=== PATIENT | female | born 1960 | race American Indian/Alaskan Native ===

== ENCOUNTER 2018-07-12 14:32 | Emergency (ER) | payer OTHER ==
[~2018-07-12] VITALS: Ht 167.6 cm; Wt 95.2 kg
[~2018-07-12 14:32] MED LIST: METF500 PO; Omeprazole20 M1; Omeprazole20 M1 PO
[2018-07-12 14:59] LABS: BASOPHILS ABSOLUTE AUTO 0.04 K/mm3 (0.00-0.23); BASOPHILS PERCENT AUTO 0 % (0-2); EOSINOPHILS PERCENT AUTO 2 % (0-6); Hematocrit 42.5 % (33.0-51.0); Hemoglobin 13.4 g/dL (11.5-16.0); IMMATURE GRAN ABSOLUTE AUTO 0.03 K/mm3 (0.00-0.10); IMMATURE GRAN PERCENT AUTO 0 % (0-1); LYMPHOCYTES ABSOLUTE AUTO 3.71 K/mm3 (0.84-5.20); LYMPHOCYTES PERCENT AUTO 38 % (21-46); MONOCYTES PERCENT AUTO 9 % (4-13); Mean Corpuscular HGB 27.3 pg (26.0-34.0); Mean Corpuscular HGB Conc 31.5 g/dL (31.5-36.5); Mean Corpuscular Volume 87 fL (80-100); Mean Platelet Volume 9.5 fL (9.1-12.4); NEUTROPHILS ABSOLUTE AUTO 5.02 K/mm3 (1.96-9.15); NEUTROPHILS PERCENT AUTO 51 % (41-73); Platelet Count 282 K/mm3 (150-400); RDW Coefficient Variation 15.5 % (11.7-14.2); RDW Standard Deviation 49.4 fL (35.1-46.3)
[2018-07-12 15:29] LABS: Alanine Aminotransfer (ALT/SGP 41 U/L (12-78); Alk Phos 115 U/L (50-136); Anion Gap 11 mmol/L (6-16); Aspartate Aminotrans (AST/SGOT 25 U/L (12-37); Bilirubin, Total 0.4 mg/dL (0.1-1.0); Blood Urea Nitrogen 29 mg/dL (8-24); CO2, Blood 20 mmol/L (21-32); Chloride, Blood 106 mmol/L (98-108); Creatinine, Blood 0.88 mg/dL (0.40-1.00); Globulin, Blood 3.9 g/dL (2.2-4.0); Glomerular Filtration Rate >60 (60-); Glucose, Blood 93 mg/dL (70-99); Potassium, Blood 4.4 mmol/L (3.5-5.5); Sodium, Blood 137 mmol/L (136-145); Total Protein, Blood 7.9 g/dL (6.4-8.2)
[2018-07-12] MEDS ORDERED: Diclofenac Pota50 MG PO (16:05)
[2018-07-12 16:16] LABS: Source, Urine Clean Catch
[2018-07-12 16:35] LABS: Appearance, Urine Clear (Clear); Bilirubin, Urine Neg (Neg); Blood, Urine Neg (Neg); Color, Urine Yellow (P-Yellow); Glucose Qualitative, Urine Neg (Neg); Ketones, Urine 1+ (Neg); Leukocyte Esterase, Urine Neg (Neg); Nitrite, Urine Neg (Neg); Protein, Urine Neg (Neg); Specific Gravity, Urine 1.015 (1.003-1.022); Urobilinogen, Urine NORM (Normal)
[2018-07-12] MEDS ORDERED: Percocet 5-3251 EACH PO ×2 (17:44→17:45)
== END 2018-07-12 17:55 | disposition home or self-care (01) ==
LOC: ER 14:32
PROVIDERS: Physician Assistant
DX: R10.11 Right upper quadrant pain (principal); E11.9 Type 2 diabetes mellitus without complications; F17.210 Nicotine dependence, cigarettes, uncomplicated; Z79.899 Other long term (current) drug therapy; Z79.84 Long term (current) use of oral hypoglycemic drugs
CPT/HCPCS: 36415; 74176; 80053; 81003; 83690; 85025; 99284-25

== ENCOUNTER → 2019-03-17 | Outpatient (CLI) | payer OTHER ==
[~2019-03-17] MED LIST changes: +Diclofenac Pota50 MG PO; +Percocet 5-3251 EACH PO
[2019-03-23 15:06] LABS: COTININE None Detected (.); NICOTINE None Detected (.)
== END | disposition home or self-care (01) ==
LOC: OLS 13:17 → LAB SHORT 13:17
PROVIDERS: Radiology Diagnostic Radiology
DX: Z72.0 Tobacco use (principal)
CPT/HCPCS: G0480

== ENCOUNTER 2019-07-01 08:00 | Day surgery (SDC) | payer OTHER ==
[~2019-07-01] VITALS: Ht 167.6 cm; Wt 102.2 kg
[~2019-07-01 08:00] MED LIST changes: +ASPI81CH PO; +TRAM50 PO
[2019-07-01] MEDS ORDERED: HYDPAM50 PO (08:44)
--- NOTE | 2019-07-01 13:39 | NUR ---
1320 PATIENT SAT UP 30 DEGREES, GROIN SITE STABLE. LUNCH TRAY SET UP AND PATIENT FEEDING SELF.
--- NOTE | 2019-07-01 15:08 | NUR ---
2298 Patient up to the restroom with cane assistance. After voiding patient back to room and assisted with dressing. Awaiting daughter to arrive to review discharge instructions. Groin site CDI with tegaderm intact. all questions answered and discharge teaching done with daughter and patient.
--- NOTE | 2019-07-01 15:43 | NUR ---
1530 DAUGHTER ARRIVED. PIV DISCONTINUED AND PRESSURE DRESSING APPLIED. REVIEWED DISCHARGE INSTRUCTIONS WITH PATIENT AND DAUGHTER. BELONGINGS GATHERED AND PATIENT TO A WHEELCHAIR AND DISCHARGE HOME VIA PRIVATE VEHICLE.
== END 2019-07-01 15:30 | disposition home or self-care (01) ==
LOC: MHTC 08:00
DX: I70.213 Atherosclerosis of native arteries of extremities with intermittent claudication, bilateral legs (principal); E11.51 Type 2 diabetes mellitus with diabetic peripheral angiopathy without gangrene; E78.00 Pure hypercholesterolemia, unspecified; F17.210 Nicotine dependence, cigarettes, uncomplicated; I87.2 Venous insufficiency (chronic) (peripheral); Z88.6 Allergy status to analgesic agent; Z88.5 Allergy status to narcotic agent; Z79.84 Long term (current) use of oral hypoglycemic drugs; Z79.82 Long term (current) use of aspirin; Z79.899 Other long term (current) drug therapy
CPT/HCPCS: 37225; 37228; 75625; 75716; 75774; 82947; 99152; 99153; C1714; C1725; C1760; C1769; C1884; C1887; C1894; C2623; J1644; J2250; J3010; J7030; Q9967

== ENCOUNTER 2020-06-21 06:26 | Day surgery (SDC) | payer OTHER ==
[~2020-06-21] VITALS: Ht 165.1 cm; Wt 98.0 kg
[~2020-06-21 06:26] MED LIST changes: +CELECOXIB200 M1 PO; +HYDPAM50 PO; +KETO.5OPSO RIGHTEYE; +METF500C PO; +VITAMIN D310 MC4 PO
--- NOTE | 2020-06-21 07:12 | NUR ---
PT TO SDS VIA WC. Pre-Op teaching done. Pt verbalizes understanding. Patient confirms NPO status and agrees with scheduled surgery. Patient reports completing Chlorhexadine shower X2 prior to admission to hospital. DENTURES REMOVED AND PLACED IN BELONGINGS. CHEM BG 150.
--- NOTE | 2020-06-21 18:29 | NUR ---
SHIFT SUMMARY PT EATING AND DRINKING, VOIDING. PT HAD THERAPY TODAY AND IS UP TO CHAIR. FAMILY IN TO SEE PT THIS AFTERNOON/EVENING. PT REPORTED TAKING EXTENDED RELEASE METFORMIN, CLARIFIED WITH DR AND VERIFIED BY PHARMACY. PT REPORTS PAIN MUCH BETTER THIS EVENING THAT SHE HAS NO PAIN NOW. PT USING CALL LIGHT APPR. PT BEEN ASSISTED WITH ADL'S PRN. PT HAS POLAR PAC AND PAS IN PLACE.
[2020-06-22 04:18] LABS: BASOPHILS ABSOLUTE AUTO 0.01 K/mm3 (0.00-0.23); BASOPHILS PERCENT AUTO 0 % (0-2); EOSINOPHILS ABSOLUTE AUTO 0.01 K/mm3 (0.00-0.68); EOSINOPHILS PERCENT AUTO 0 % (0-6); Hematocrit 34.5 % (33.0-51.0); Hemoglobin 11.2 g/dL (11.5-16.0); IMMATURE GRAN ABSOLUTE AUTO 0.05 K/mm3 (0.00-0.10); IMMATURE GRAN PERCENT AUTO 0 % (0-1); LYMPHOCYTES PERCENT AUTO 14 % (21-46); MONOCYTES PERCENT AUTO 10 % (4-13); Mean Corpuscular HGB 30.2 pg (26.0-34.0); Mean Corpuscular HGB Conc 32.5 g/dL (31.5-36.5); Mean Corpuscular Volume 93 fL (80-100); Mean Platelet Volume 10.2 fL (9.1-12.4); NEUTROPHILS ABSOLUTE AUTO 10.73 K/mm3 (1.96-9.15); NEUTROPHILS PERCENT AUTO 76 % (41-73); Platelet Count 218 K/mm3 (150-400); RDW Coefficient Variation 13.3 % (11.7-14.2); RDW Standard Deviation 45.1 fL (35.1-46.3); Red Blood Cell Count 3.71 M/mm3 (3.80-5.20)
--- NOTE | 2020-06-22 04:25 | NUR ---
SHIFT SUMMARY PT IS A/O X4. SBA WITH FWW AND GAIT BELT TO AMBULATE. HAS BEEN UP TO BATHROOM MULT TIMES. AMBULATING WELL, TOLERATING PO INTAKE W/O NAUSEA, AND PAIN MANAGED WITH OCC VERO PER ORDERS. POLAR PACK IN PLACE OVERNIGHT TO R PAZ. LUCIA CDI. PT RESTING IN BED AT THIS TIME, CALL LIGHT IN REACH.
[2020-06-22 04:34] LABS: Anion Gap 8 mmol/L (6-16); Blood Urea Nitrogen 16 mg/dL (8-24); Bun/Creatinine Ratio 27.7 (12.0-20.0); CO2, Blood 25 mmol/L (21-32); Calcium, Blood 8.8 mg/dL (8.5-10.1); Chloride, Blood 109 mmol/L (98-108); Creatinine, Blood 0.58 mg/dL (0.40-1.00); Glomerular Filtration Rate >60 (60-); Glucose, Blood 136 mg/dL (70-99); Magnesium, Blood 1.6 mg/dL (1.6-2.4); Potassium, Blood 4.4 mmol/L (3.5-5.5); Sodium, Blood 142 mmol/L (136-145)
[2020-06-22] MEDS ORDERED: ASPI81CH PO (09:24)
[2020-06-22] MEDS ORDERED: OXYC5 PO (09:25)
--- NOTE | 2020-06-22 10:59 | NUR ---
DISCHARGE ESCORTED OUT VIA W/C. CLEARED THERAPY. EATING, DRINKING, VOIDING. PAIN WELL CONTROLLED. SCRIPTS, DRSGS, & POLAR PACK SENT.
== END 2020-06-22 10:30 | disposition home or self-care (01) ==
LOC: ORSCMMR 06:26 → ORD 07:30 → ORSCMMR 07:30 → SURS 10:45 → ORSCMMR 06-22 10:30
PROVIDERS: Orthopaedic Surgery
PROC: 0SR90JA Replacement of Right Hip Joint with Synthetic Substitute, Uncemented, Open Approach (ICD-10-PCS; principal; 2020-06-21 07:30)
DX: M16.11 Unilateral primary osteoarthritis, right hip (principal); E11.9 Type 2 diabetes mellitus without complications; K21.9 Gastro-esophageal reflux disease without esophagitis; K76.0 Fatty (change of) liver, not elsewhere classified; E66.01 Morbid (severe) obesity due to excess calories; Z68.36 Body mass index [BMI] 36.0-36.9, adult; Z87.891 Personal history of nicotine dependence; Z79.84 Long term (current) use of oral hypoglycemic drugs
CPT/HCPCS: 36415; 72170; 80048; 82947; 83735; 85025; 88300; 97110; 97116; 97162; 97530; A9270; C1776; J0171; J0690; J0735; J1100; J1170; J1885; J2250; J2405; J2704; J2795; J3010; J7120

== ENCOUNTER → 2021-10-25 | Outpatient (CLI) | payer OTHER ==
[~2021-10-25] MED LIST changes: +CHOLESTYRAMI239.4 G1 PO; +FERSU300 PO; +INSULANI SC; +OXYC5 PO; +[UNRECOGNIZED DRUG - CODE] PO
[2021-10-25 14:01] LABS: BASOPHILS ABSOLUTE AUTO 0.03 K/mm3 (0.00-0.23); BASOPHILS PERCENT AUTO 1 % (0-2); EOSINOPHILS PERCENT AUTO 3 % (0-6); Hemoglobin 13.1 g/dL (11.5-16.0); IMMATURE GRAN ABSOLUTE AUTO 0.03 K/mm3 (0.00-0.10); IMMATURE GRAN PERCENT AUTO 1 % (0-1); LYMPHOCYTES ABSOLUTE AUTO 2.22 K/mm3 (0.84-5.20); LYMPHOCYTES PERCENT AUTO 33 % (21-46); MONOCYTES ABSOLUTE AUTO 0.58 K/mm3 (0.16-1.47); MONOCYTES PERCENT AUTO 9 % (4-13); Mean Corpuscular HGB 27.6 pg (26.0-34.0); Mean Corpuscular Volume 87 fL (80-100); Mean Platelet Volume 10.5 fL (9.1-12.4); NEUTROPHILS ABSOLUTE AUTO 3.58 K/mm3 (1.96-9.15); NEUTROPHILS PERCENT AUTO 54 % (41-73); Platelet Count 217 K/mm3 (150-400); Red Blood Cell Count 4.74 M/mm3 (3.80-5.20); White Blood Cell Count 6.64 K/mm3 (4.00-11.30)
[2021-10-25 14:30] LABS: Bun/Creatinine Ratio 36.2 (12.0-20.0); Calcium, Blood 9.4 mg/dL (8.5-10.1); Creatinine, Blood 0.66 mg/dL (0.40-1.00); Potassium, Blood 4.2 mmol/L (3.5-5.5)
== END ==
LOC: LAB SHORT 12:07
PROVIDERS: Orthopaedic Surgery
DX: Z01.812 Encounter for preprocedural laboratory examination (principal); E11.9 Type 2 diabetes mellitus without complications; M16.12 Unilateral primary osteoarthritis, left hip
CPT/HCPCS: 36415; 80048; 83036; 85025

== ENCOUNTER 2021-11-07 06:08 | Day surgery (SDC) | payer OTHER ==
[~2021-11-07] VITALS: Ht 167.6 cm; Wt 90.1 kg
--- NOTE | 2021-11-07 07:09 | NUR ---
PT ADMITTED TO [facility]. AGREES WITH PLANNED SURGERY. LUNG SOUNDS CLEAR.
--- NOTE | 2021-11-07 14:18 | NUR ---
SPINAL/PAIN ONLY GROSS MOVEMENT TO BLE. DENIES PAIN. L HIP SITE w/ VERY SCANT DRNG.
--- NOTE | 2021-11-07 15:51 | NUR ---
ASSUMED CARE OF PT AT APROX 1500. AT THIS TIME PT HAS SENSATION TO BLE AND SOME MVMT LE. UNABLE TO LIFT LLE AT THIS TIME. DENIES PAIN OR ANY NEEDS.
--- NOTE | 2021-11-07 18:50 | NUR ---
SHIFT SUMMARY PT POD 0 L ALEC. DRESSING WITH SMALL AMT SS DRAINAGE. UNABLE TO WORK WITH THERAPY TODAY DUE TO SPINAL BLOCK. WAS ABLE TO AMBULATE TO BATHROOM AT APROX 1715 1 MOD ASSIST W/FWW AND GAIT BELT, UP TO CHAIR FOR DINNER. VOIDING W/O DIFFICULTY. TOLERATING PO WITH NO N/V.
[2021-11-08 05:13] LABS: BASOPHILS ABSOLUTE AUTO 0.02 K/mm3 (0.00-0.23); BASOPHILS PERCENT AUTO 0 % (0-2); EOSINOPHILS ABSOLUTE AUTO 0.02 K/mm3 (0.00-0.68); EOSINOPHILS PERCENT AUTO 0 % (0-6); Hematocrit 36.2 % (33.0-51.0); Hemoglobin 11.7 g/dL (11.5-16.0); IMMATURE GRAN ABSOLUTE AUTO 0.06 K/mm3 (0.00-0.10); IMMATURE GRAN PERCENT AUTO 1 % (0-1); LYMPHOCYTES ABSOLUTE AUTO 1.79 K/mm3 (0.84-5.20); LYMPHOCYTES PERCENT AUTO 14 % (21-46); MONOCYTES ABSOLUTE AUTO 1.26 K/mm3 (0.16-1.47); MONOCYTES PERCENT AUTO 10 % (4-13); Mean Corpuscular HGB 28.2 pg (26.0-34.0); Mean Corpuscular HGB Conc 32.3 g/dL (31.5-36.5); Mean Corpuscular Volume 87 fL (80-100); NEUTROPHILS ABSOLUTE AUTO 9.85 K/mm3 (1.96-9.15); NEUTROPHILS PERCENT AUTO 76 % (41-73); Platelet Count 219 K/mm3 (150-400); RDW Coefficient Variation 19.3 % (11.7-14.2); Red Blood Cell Count 4.15 M/mm3 (3.80-5.20)
--- NOTE | 2021-11-08 05:29 | NUR ---
SHIFT SUMMARY A/O X4. POD1 L TOTAL HIP, PREMIO DRESSING IN PLACE, C/D/I. AMBULATING TO THE BATHROOM W/ 1 ASSIST, FWW, AND GB. NO PAIN REPORTED THROUGHOUT SHIFT. TOLERATING PO INTAKE. VOIDING WELL. VITAL SIGNS STABLE. WILL CONTINUE TO MONITOR AND REPORT TO ONCOMING RN.
[2021-11-08 05:38] LABS: Bun/Creatinine Ratio 35.4 (12.0-20.0); Calcium, Blood 9.1 mg/dL (8.5-10.1); Creatinine, Blood 0.68 mg/dL (0.40-1.00); Potassium, Blood 4.1 mmol/L (3.5-5.5)
[2021-11-08] MEDS ORDERED: ACET500 PO (08:43)
[2021-11-08] MEDS ORDERED: OMEP20ER PO (08:43)
[2021-11-08] MEDS ORDERED: OXYC5 PO (08:44)
--- NOTE | 2021-11-08 13:06 | NUR ---
DISCHARGE SUMMARY PT POD #1 FOR L TOTAL HIP. DERMABOND DRESSING IN PLACE AND CDI. PT HAS NOT HAD ANY PAIN THIS SHIFT. WORKED WITH PHYSICAL THERAPY AND CLEARED TO GO HOME. PT DC'D HOME WITH DAUGHTER.
== END 2021-11-08 13:00 | disposition home or self-care (01) ==
LOC: ORSCMMR 06:08 → ORD 07:30 → ORSCMMR 07:30 → SURS 10:53 → ORSCMMR 11-08 13:00
PROVIDERS: Orthopaedic Surgery
PROC: 0SRB0JA Replacement of Left Hip Joint with Synthetic Substitute, Uncemented, Open Approach (ICD-10-PCS; principal; 2021-11-07 07:30)
DX: M16.12 Unilateral primary osteoarthritis, left hip (principal); Z96.641 Presence of right artificial hip joint; E11.9 Type 2 diabetes mellitus without complications; Z79.4 Long term (current) use of insulin; K21.9 Gastro-esophageal reflux disease without esophagitis; K76.0 Fatty (change of) liver, not elsewhere classified; Z79.899 Other long term (current) drug therapy; E66.9 Obesity, unspecified; Z68.32 Body mass index [BMI] 32.0-32.9, adult
CPT/HCPCS: 36415; 72170; 80048; 82947; 83735; 85025; 97110; 97116; 97162; A9270; C1776; J0171; J0690; J0735; J1100; J1815; J1885; J2250; J2370; J2405; J2704; J2795; J3010; J7120

== ENCOUNTER 2023-05-24 10:38 | Day surgery (SDC) | payer OTHER ==
[2023-05-24] VITALS (9 sets, daily range): BP systolic 92–161; BP diastolic 58–94
[~2023-05-24] VITALS: Ht 167.6 cm; Wt 93.0 kg
[~2023-05-24 10:38] MED LIST changes: +ACET500 PO; -CELECOXIB200 M1 PO; +CELECOXIB50 MG PO; +OMEP20ER PO
--- NOTE | 2023-05-24 16:00 | NUR ---
PT ARRIVES BACK TO RECOVERY ROOM. VSS. PT ALERT AND ORIENTED, REFRESHMENTS PROVIDED. PT LEFT GROIN SITE WNL, SOFT NO HEMATOMA. PT REMAINS IN SUPINE POSITION. VERBALIZED UNDERSTANDING TO REMAIN SUPINE WITH NO FLEXING OR LIFTING OF HEAD. WARM BLANKETS IN PLACE.
--- NOTE | 2023-05-24 18:03 | NUR ---
pt site remains unchanged. site soft, no hematoma. pt. vss. additional refreshments provided.
--- NOTE | 2023-05-24 18:09 | NUR ---
pt hob raised to 30 degrees, tolerated well. site remains unchanged. pt. asssited to dangle at bedside and stand. stable on feet at this time. site assessed after standing and remains unchanged. pt requesting to ambulate to bathroom. assisted to bathroom at this time.
--- NOTE | 2023-05-24 18:32 | NUR ---
PT UP AND AMBULATING W/O DIFFICULTY. PT VSS. SITE REMAINS UNCHANGED. IV REMOVED, CATHETER INTACT. PT. ABLE TO GET SELF DRESSED W/O DIFFICULTY. PT. DISCHARGE INSTRUCTIONS REVIEWED IN DETAIL, NO FURTHER QUESTIONS AT THIS TIME. PT. S/O CALLED FOR RIDE.
--- NOTE | 2023-05-24 18:58 | NUR ---
pt dressed and ready to be discharged, pt ride delayed.
== END 2023-05-24 19:20 | disposition home or self-care (01) ==
LOC: MHTC 10:38
DX: E11.51 Type 2 diabetes mellitus with diabetic peripheral angiopathy without gangrene (principal); I73.9 Peripheral vascular disease, unspecified; I83.813 Varicose veins of bilateral lower extremities with pain; Z87.891 Personal history of nicotine dependence
CPT/HCPCS: 76937; 85347; 99152; 99153; C1725; C1760; C1769; C1887; C1894; C2623; J1644; J2250; J3010; J7030; J7050; Q9967

== ENCOUNTER 2023-06-07 09:10 | Day surgery (SDC) | payer OTHER ==
[2023-06-07] VITALS (11 sets, daily range): BP systolic 94–155; BP diastolic 56–114
[~2023-06-07] VITALS: Ht 167.6 cm; Wt 93.0 kg
[~2023-06-07 09:10] MED LIST changes: +Aspir 8181 MG PO
[2023-06-07] MEDS ORDERED: CLOP75 PO (14:25)
--- NOTE | 2023-06-07 14:54 | NUR ---
PT AMBULATES TO RESTROOM AND BACK WITHOUT DIFF. DRESSES SELF WITHOUT ASSISTANCE. VSS. NADN. R FEMORAL SITE/ L PEDAL SITE REMAIN STABLE. NO BLEEDING OR HEMATOMA NOTED. PT VERBALIZES UNDERSTANDING WRITTEN AND VERBAL INSTRUCTIONS. PT IV DC'D. CATH INTACT. PRESSURE DSG APPLIED. NO BLEEDING NOTED. PT DC TO HOME VIA WC BY DAUGHTER.
== END 2023-06-07 14:55 | disposition home or self-care (01) ==
LOC: MHTC 09:10
DX: E11.51 Type 2 diabetes mellitus with diabetic peripheral angiopathy without gangrene (principal); I70.223 Atherosclerosis of native arteries of extremities with rest pain, bilateral legs; I87.313 Chronic venous hypertension (idiopathic) with ulcer of bilateral lower extremity; Z87.891 Personal history of nicotine dependence; Z88.5 Allergy status to narcotic agent; Z79.82 Long term (current) use of aspirin; Z79.4 Long term (current) use of insulin; Z79.899 Other long term (current) drug therapy
CPT/HCPCS: 37227; 37252; 75625; 75716; 75774; 76937; 85347; 99152; 99153; C1724; C1753; C1760; C1769; C1874; C1887; C1894; C2623; J1644; J2250; J3010; J7030; J7050; Q9967

== ENCOUNTER 2023-09-27 09:48 | Day surgery (SDC) | payer MEDICARE, OTHER ==
[2023-09-27] VITALS (13 sets, daily range): BP systolic 101–149; BP diastolic 63–85
[~2023-09-27] VITALS: Ht 167 cm; Wt 91.0 kg
[~2023-09-27 09:48] MED LIST changes: +CLOP75 PO; +EUTHYROX88 MCG PO; +Lactated Ringer's 1,000 ML IV SCH
--- NOTE | 2023-09-27 10:56 | NUR ---
History, Chart, Medications and Allergies reviewed before start of procedure. Patient up to Ambulate independently. Gait steady. Pre-Op teaching done. Pt verbalizes understanding. Patient confirms NPO status and agrees with scheduled surgery. Patient states colon prep results light yellow without sediment. Patient States Post-Procedure ride home has been arranged.
[2023-09-27] MEDS ORDERED: propofoL 40 ML IV ONE (11:17)
--- NOTE | 2023-09-27 11:28 | NUR ---
09/27/23 1128 Jeff Hernandez HISTORY, CHART, MEDICATIONS AND ALLERGIES REVIEWED BEFORE START OF PROCEDURE. PATIENT CONFIRMS NPO STATUS AND AGREES WITH SCHEDULED PROCEDURE. 3-LEAD EKG REVIEWED WITH PHYSICIAN PRIOR TO START OF PROCEDURE. MONITOR INTACT WITH CONTINUOUS PULSE OXIMETRY,CAPNOGRAPHY, 3-LEAD EKG, INTERMITTENT BP. SUPPLEMENTAL O2 TO BE TITRATED THROUGHOUT PROCEDURE TO MAINTAIN O2 SATURATION ABOVE 90%. PATIENT DETERMINED TO BE ASA APPROPRIATE FOR PROPOFOL SEDATION PRIOR TO START OF PROCEDURE BY DR. GONZALEZ.
--- NOTE | 2023-09-27 12:16 | NUR ---
Patient up to Ambulate independently. Gait steady. Discharge instructions reviewed with patient. Patient verbalizes understanding. Copy given to patient to take home. Patient States Post-Procedure ride home has been arranged. Discharged via wheelchair to private car for ride home. ALL BELONGINGS RETURNED TO PATIENT.
== END 2023-09-27 22:46 | disposition home or self-care (01) ==
LOC: ORSCMMR 09:48 → ORD 10:30 → ORSCMMR 10:30 → ORD 10-09 08:00
PROVIDERS: Internal Medicine Gastroenterology
PROC: 0DBK8ZX Excision of Ascending Colon, Via Natural or Artificial Opening Endoscopic, Diagnostic (ICD-10-PCS; principal; 2023-09-27 10:30)
PROC: 0DBN8ZX Excision of Sigmoid Colon, Via Natural or Artificial Opening Endoscopic, Diagnostic (ICD-10-PCS; principal; 2023-09-27 10:30)
DX: Z12.11 Encounter for screening for malignant neoplasm of colon (principal); Z86.010 Personal history of colon polyps; K63.5 Polyp of colon; E11.9 Type 2 diabetes mellitus without complications; K57.30 Diverticulosis of large intestine without perforation or abscess without bleeding; I73.9 Peripheral vascular disease, unspecified; E03.9 Hypothyroidism, unspecified; K21.9 Gastro-esophageal reflux disease without esophagitis; F17.210 Nicotine dependence, cigarettes, uncomplicated; Z68.33 Body mass index [BMI] 33.0-33.9, adult; Z79.02 Long term (current) use of antithrombotics/antiplatelets; Z79.899 Other long term (current) drug therapy
CPT/HCPCS: 82947; 88305; J2704; J7120

== ENCOUNTER → 2025-01-15 | Outpatient (CLI) | payer MEDICARE, OTHER ==
[~2025-01-15] MED LIST changes: +ATOR40TA PO; +Acetaminophen650 M1 PO; +BRILINTA90 M1 PO; +FURO20 PO; +LANTUS SOL100 UNIT/1 SC; +LOSA25 PO; -Lactated Ringer's 1,000 ML IV SCH; +METO25ER; +PANT20 PO; +POTA10T PO; +TERB250 PO
[2025-01-15 20:51] LABS: Creatinine, Urine Random 17.4 mg/dL (27.00-270.00); Microalb/Creat Ratio UR, Rand 50.632 mg/g (0.000-30.000); Microalbumin, Random Urine 8.81 mg/L (0.000-20.000)
== END ==
LOC: LAB SHORT 14:58 → LAB 14:58
PROVIDERS: Family Medicine
DX: E11.9 Type 2 diabetes mellitus without complications (principal); Z79.4 Long term (current) use of insulin
CPT/HCPCS: 82043; 82570

== ENCOUNTER 2025-05-19 15:43 | Inpatient (IN) | payer MEDICARE, OTHER ==
[~2025-05-19] VITALS: Ht 167.6 cm; Wt 89.2 kg
[2025-05-19] MEDS ORDERED: Ketorolac Tromethamine 15mg Vial IV ONE ×2 (17:05→19:25)
[2025-05-19 17:59] LABS: BASOPHILS ABSOLUTE AUTO 0.05 K/mm3 (0.00-0.23); BASOPHILS PERCENT AUTO 0 % (0-2); EOSINOPHILS ABSOLUTE AUTO 0.07 K/mm3 (0.00-0.68); EOSINOPHILS PERCENT AUTO 1 % (0-6); Hematocrit 43.1 % (33.0-51.0); Hemoglobin 14.4 g/dL (11.5-16.0); IMMATURE GRAN ABSOLUTE AUTO 0.08 K/mm3 (0.00-0.10); IMMATURE GRAN PERCENT AUTO 1 % (0-1); LYMPHOCYTES ABSOLUTE AUTO 1.65 K/mm3 (0.84-5.20); LYMPHOCYTES PERCENT AUTO 12 % (21-46); MONOCYTES ABSOLUTE AUTO 0.69 K/mm3 (0.16-1.47); MONOCYTES PERCENT AUTO 5 % (4-13); Mean Corpuscular HGB Conc 33.4 g/dL (31.5-36.5); Mean Corpuscular Volume 93 fL (80-100); NEUTROPHILS ABSOLUTE AUTO 11.28 K/mm3 (1.96-9.15); NEUTROPHILS PERCENT AUTO 82 % (41-73); NRBC ABSOLUTE 0.00 K/mm3 (0.00-0.02); NRBC Auto 0.0 /100 WBC (0.0-0.2); Platelet Count 235 K/mm3 (150-400); RDW Coefficient Variation 13.5 % (11.7-14.2); RDW Standard Deviation 46.0 fL (35.1-46.3)
[2025-05-19 18:12] LABS: Alanine Aminotransfer (ALT/SGP 27.0 U/L (12-78); Albumin, Blood 3.8 g/dL (3.4-5.0); Albumin/Globulin Ratio 1.0 (0.8-1.8); Anion Gap 8.0 mmol/L (3-11); Aspartate Aminotrans (AST/SGOT 19.0 U/L (12-37); Bilirubin, Total 0.4 mg/dL (0.1-1.0); Blood Urea Nitrogen 24.0 mg/dL (8-24); CO2, Blood 27.0 mmol/L (21-32); Calcium, Blood 9.5 mg/dL (8.5-10.1); Chloride, Blood 106.0 mmol/L (98-108); Creatinine, Blood 0.82 mg/dL (0.40-1.00); Globulin, Blood 3.9 g/dL (2.2-4.0); Glucose, Blood 181.0 mg/dL (70-99); Potassium, Blood 4.4 mmol/L (3.5-5.5); Sodium, Blood 137.0 mmol/L (136-145); Total Protein, Blood 7.7 g/dL (6.4-8.2)
[2025-05-19 20:54] LABS: Prothrombin Time Results 11.4 Sec (9.7-11.5)
[2025-05-19] MEDS ORDERED: Ondansetron HCl 2 MG / ML 2ML Vial IV PRN (21:25)
[2025-05-19] MEDS ORDERED: FLU VACC TS2025(65UP)/MF59C/PF 45 MCG/0.5 ML SYRINGE IM SCH (21:25)
[2025-05-19] MEDS ORDERED: NS 1,000 ML IV SCH (21:25)
[2025-05-19] MEDS ORDERED: OxyCODONE 5 mg/Acetamin 325 mg TABLET PO PRN (21:30)
[2025-05-19] MEDS ORDERED: FentaNYL Citrate 50 MCG/ML 2 ML Injection IV PRN (21:30)
[2025-05-19] MEDS ORDERED: Insulin Glargine-Yfgn 100 Unit/mL 3 ML SYR SC SCH (22:00)
[2025-05-20] VITALS (20 sets, daily range): BP systolic 107–164; BP diastolic 59–90
[2025-05-20] MEDS ORDERED: JARDIANCE10 MG PO (00:23)
[2025-05-20] MEDS ORDERED: CLOP75 PO (00:24)
[2025-05-20] MEDS ORDERED: LEVSOD25 PO (00:25)
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
[2025-05-20 06:35] LABS: Hematocrit 37.1 % (33.0-51.0); Hemoglobin 12.4 g/dL (11.5-16.0); Mean Corpuscular HGB Conc 33.4 g/dL (31.5-36.5); Mean Corpuscular Volume 92 fL (80-100); NRBC ABSOLUTE 0.00 K/mm3 (0.00-0.02); NRBC Auto 0.0 /100 WBC (0.0-0.2); Platelet Count 196 K/mm3 (150-400); RDW Coefficient Variation 13.7 % (11.7-14.2); RDW Standard Deviation 46.7 fL (35.1-46.3)
[2025-05-20 06:57] LABS: Anion Gap 10.0 mmol/L (3-11); Blood Urea Nitrogen 28.0 mg/dL (8-24); CO2, Blood 24.0 mmol/L (21-32); Calcium, Blood 8.8 mg/dL (8.5-10.1); Chloride, Blood 110.0 mmol/L (98-108); Creatinine, Blood 0.78 mg/dL (0.40-1.00); Glucose, Blood 107.0 mg/dL (70-99); Potassium, Blood 3.7 mmol/L (3.5-5.5); Sodium, Blood 140.0 mmol/L (136-145)
[2025-05-20] MEDS ORDERED: Tranexamic Acid 100 ML IV SCH (09:05)
[2025-05-20] MEDS ORDERED: CeFAZolin Sodium 2,000 MG in NS 100 ML IV SCH (09:05)
[2025-05-20] MEDS ORDERED: FentaNYL Citrate 50 MCG/ML 2 ML Injection ONE ×2 (15:00→17:21)
[2025-05-20] MEDS ORDERED: Sugammadex Sodium 200 MG/2ML SDV (100 MG/ML) ONE (15:01)
[2025-05-20] MEDS ORDERED: Ondansetron HCl 2 MG / ML 2ML Vial ONE (15:04)
[2025-05-20] MEDS ORDERED: Rocuronium Bromide 10 MG/ML 5ML Injection IV ONE (15:04)
[2025-05-20] MEDS ORDERED: Dexamethasone Sod Phos 10 MG/ML 1ML VIAL ONE (15:04)
--- NOTE | 2025-05-20 15:05 | NUR ---
PT TO OR AT THIS TIME
[2025-05-20] MEDS ORDERED: Bupivacaine 0.5% W/EPI 1:200000 SDV 30 ML Vial ONE (15:15)
--- NOTE | 2025-05-20 15:20 | NUR ---
[employer] NOTIFIED AT TIME OF PT TRANSPORT TO OR
--- NOTE | 2025-05-20 15:30 | NUR ---
PT TO PACU VIA RACIEL FROM RM 219 FOR PREOP CARE AT 1510. PLEASANT AND COOPERATIVE. SURGICAL PACK COMPLETE. AFEBRILE/VSS. SURGICAL HAT/PAS SLEEVES/BP CUFF IN PLACE. LR TO TKO. TOPROL XL 12.5MG PO GIVEN AT 1049 SURGICAL FLOOR. FULL DENTURES REMOVED AND PLACED IN DENTURE CUP w/DENTURE CLEANSER. NO COMPLAINTS AT THIS TIME. WILL CONTINUE TO MONITOR FOR CHANGES DURING MY CARE.
[2025-05-20] MEDS ORDERED: Ondansetron HCl 2 MG / ML 2ML Vial IV PRN ×2 (15:35→16:00)
--- NOTE | 2025-05-20 15:37 | NUR ---
TO OR 3 VIA GURNEY AT 1530 IN STABLE CONDITION.
[2025-05-20] MEDS ORDERED: Naloxone HCl 0.4MG / ML 1ML Vial IV PRN (15:40)
[2025-05-20] MEDS ORDERED: Magnesium Hydroxide Conc 10 ML UDC PO PRN (15:40)
[2025-05-20] MEDS ORDERED: FLU VACC TS2025-26(6MOS UP)/PF 45 MCG/0.5 ML SYRINGE IM ONE (15:40)
[2025-05-20] MEDS ORDERED: HYDROmorphone HCl/Pf 1MG SYR IV PRN ×2 (15:40→16:00)
[2025-05-20] MEDS ORDERED: FentaNYL Citrate 50 MCG/ML 2 ML Injection IV PRN ×3 (16:00)
[2025-05-20] MEDS ORDERED: Metoclopramide HCl 5MG / ML 2ML Vial IV PRN (16:00)
--- NOTE | 2025-05-20 16:43 | NUR ---
REPORT PASSED TO P[facility]
--- NOTE | 2025-05-20 18:10 | NUR ---
PT ARRIVED TO UNIT FROM PACU DROWSY BUT ANSWERS QUESTIONS APPROPRIATELY. BULKY DRESSING TO LUE CDI. BRUISING NOTED TO L BICEP. VSS. CALL LIGHT IN REACH.
--- NOTE | 2025-05-20 18:23 | NUR ---
PT ARRIVED TO THE ROOM FROM PACU AT APPROXIMATELY 1800. PT DROWSY BUT AWAKE AND ORIENTED. PAIN MANGED. PT REPORTS MILD NAUSEA, NO VOMITING. O2 SATURATION WAS 88-89% ON RA, PT ENCOURAGED TO COUGH AND DEEP BREATH, SATURATIONS INCREASED TO 90% THEN CAME BACK DOWN, PT PLACED ON 2L O2 VIA NC O2 SATURATION INCREASED TO 99%. WARM BLANKET PROVIDED. PT'S DAUGHTER NOTIFIED OF PT'S RETURN FROM PACU PER PT REQUEST. PT GAVE PERMISSION TO HAVE HER DAUGHTER TAKE HER PRESCRIPTION TO THE PHARMACY [facility]. L ARM IN IMMOBILIZER, BRUISING WITH SOME SWELLING PRESENT TO L SHOULDER. DRESSING C/D/I, PULSES PRESENT AND PALPABLE, PT IS ABLE TO MOVE THE FINGERS ON HER LEFT HAND AND SHE REPORTS GOOD SENSATION. SKIN PINK, WARM AND DRY.
[2025-05-21] MEDS ORDERED: CeFAZolin Sodium 2,000 MG in NS 100 ML IV SCH
[2025-05-21 00:40] VITALS: BP 128/70
[2025-05-21 05:03] VITALS: BP 125/63
--- NOTE | 2025-05-21 05:16 | NUR ---
BICYCLE I ASSEMBLER SUMMARY PT IS POD 0 FOR L HUMERUS NAILING. ARM REMAINS IN SLING. BULKY DRESSING WITH PRESSURE TAPE TO L SHOULDER C/D/I. PT WITH SOME BRUISING AND SWELLING TO L BICEP. GOOD RADIAL PULSES TO LUE. PT ABLE TO WIGGLE FINGERS, DENIES N/T. PAIN WELL CONTROLLED WITH PO PAIN MEDS, SEE MAR. TOLERATING PO AND HAS BEEN UP TO BATHROOM SEVERAL TIMES TO VOID. VSS, WCTM.
[2025-05-21] MEDS ORDERED: Insulin Human Lispro 100 Units/ML 3ML Syringe SC SCH (07:30)
[2025-05-21 07:45] VITALS: BP 118/63
[2025-05-21] MEDS ORDERED: OXYC5 PO (11:25)
[2025-05-21] MEDS ORDERED: SENNA LAXATIVE8.6 MG PO (11:26)
--- NOTE | 2025-05-21 11:41 | NUR ---
DC INSTRUCT REVIEWED WITH PT AND ADULT DAUGHTER. STATED UNDERSTANDING. PT PROVIDED TWO AQUACELL FOR DRESSING CHANGES. DC'D TO POV VIA W/C WITH PRINTED INSTRUCT.
== END 2025-05-21 11:50 | disposition home or self-care (01) | DRG 494 ==
LOC: ER 15:43 → ERHOLD 21:23 → SURS 21:23
PROVIDERS: Nurse Practitioner Acute Care; Orthopaedic Surgery; Student in an Organized Health Care Education/Training Program; ADMIT Internal Medicine
PROC: 3E02340 Introduction of Influenza Vaccine into Muscle, Percutaneous Approach (ICD-10-PCS; 2025-05-19)
PROC: 0PSC36Z Reposition Right Humeral Head with Intramedullary Internal Fixation Device, Percutaneous Approach (ICD-10-PCS; principal; 2025-05-20 16:30)
PROC: 3E03329 Introduction of Other Anti-infective into Peripheral Vein, Percutaneous Approach (ICD-10-PCS; 2025-05-21)
DX: S42.212A Unspecified displaced fracture of surgical neck of left humerus, initial encounter for closed fracture (principal); Z96.643 Presence of artificial hip joint, bilateral; E11.51 Type 2 diabetes mellitus with diabetic peripheral angiopathy without gangrene; F17.210 Nicotine dependence, cigarettes, uncomplicated; I45.10 Unspecified right bundle-branch block; I25.10 Atherosclerotic heart disease of native coronary artery without angina pectoris; E78.5 Hyperlipidemia, unspecified; I25.5 Ischemic cardiomyopathy; Z88.1 Allergy status to other antibiotic agents; Z98.891 History of uterine scar from previous surgery; Z79.82 Long term (current) use of aspirin; Z79.4 Long term (current) use of insulin; Z87.19 Personal history of other diseases of the digestive system; Z23 Encounter for immunization; Z90.49 Acquired absence of other specified parts of digestive tract; Z79.899 Other long term (current) drug therapy; Z88.5 Allergy status to narcotic agent; I25.2 Old myocardial infarction; Z95.5 Presence of coronary angioplasty implant and graft; Z79.890 Hormone replacement therapy; W10.8XXA Fall (on) (from) other stairs and steps, initial encounter
CPT/HCPCS: 36415; 73030; 73100; 80048; 80053; 82947; 84484; 85025; 85027; 85610; 85730; 93005; 93010; 94762; 96374; 99284-25; A9270; J0690; J1100; J1815; J1885; J2405; J2470; J2704; J3010; J3373; J7030; J7050; J7120